=== PATIENT | female | born 1985 | race Caucasian/White ===

== ENCOUNTER 2017-08-23 19:49 | Emergency (ER) | payer MEDICAID ==
[~2017-08-23 19:49] MED LIST: FERR-43 PO; PREN-88 PO; PREN1TAB49 PO
== END 2017-08-23 19:59 | disposition left against medical advice (07) ==
LOC: ER 19:49
DX: R10.9 Unspecified abdominal pain (principal); Z53.21 Procedure and treatment not carried out due to patient leaving prior to being seen by health care provider